=== PATIENT | male | born 1980 | race Caucasian/White ===

== ENCOUNTER 2016-09-17 16:41 | Emergency (ER) | payer OTHER ==
[~2016-09-17] VITALS: Ht 185.4 cm; Wt 98.9 kg
[2016-09-17] MEDS ORDERED: VASCEPA1 G1 PO (17:17)
[2016-09-17] MEDS ORDERED: ATORVASTATIN CA10 M1 PO (17:17)
[2016-09-17] MEDS ORDERED: FLUOXETINE HCL20 M2 PO (17:17)
[2016-09-17] MEDS ORDERED: MULTI-DAY VITA1 EACH PO (17:18)
--- NOTE | 2016-09-17 18:33 | RADIOLOGY REPORT ---
EXAMINATION: XR TIBIA AND FIBULA, LEFT CLINICAL INFORMATION: Laceration to the left anterior hoff. COMPARISON: None. TECHNIQUE: AP and lateral views of the left tibia and fibula were obtained. FINDINGS: Multiple views of the left tibia and fibula demonstrate a large soft tissue defect along the anterior aspect of the mid tibia. No underlying fracture or dislocation of the left tibia or fibula is identified. There are no retained radiopaque foreign bodies. The left knee and left ankle joints appear to be grossly intact. Incidental note is made of accessory ossicles adjacent to the talus as well as the cuboid bones. IMPRESSION: A large soft tissue defect along the anterior aspect of the mid left tibia, without underlying fracture of the left tibia or fibula. No radiopaque foreign bodies.
--- NOTE | 2016-09-17 18:59 | ED GENERAL ADULT ---
History of Present Illness General Chief Complaint: Laceration Procedure Stated Complaint: L HOFF LACERATION Source: patient Exam Limitations: no limitations Vital Signs & Intake/Output Vital Signs & Intake/Output Vital Signs Date Time Temp Pulse Resp B/P B/P Pulse O2 O2 Flow FiO2 Mean Ox Delivery Rate 09/18 2003 97.0 85 18 148/82 97 09/17 1802 99 Room Air 09/17 1644 98.8 100 16 166/96 96 Room Air Allergies Coded Allergies: No Known Allergies (09/17/16) Reconcile Medications Atorvastatin Calcium 10 MG TABLET 1 TAB PO DAILY CHOLESTEROL (Reported) Cephalexin (Keflex) 500 MG CAPSULE 1 CAP PO 4 TIMES/DAY contaminated laceration Fluoxetine HCl 20 MG CAPSULE 1 CAP PO DAILY ANXIETY (Reported) Icosapent Ethyl (Vascepa) 1 GRAM CAPSULE 2 CAP PO BID CHOLESTEROL (Reported) Multivitamin (Multi-Day Vitamins) 1 EACH TABLET 1 TAB PO DAILY SUPPLEMENT ( Reported) Triage Note: PT STATES HIS SHED DOOR FELL ON HIS LEFT LOWER LEG AND LEFT A HOLE IN IT. PT ARRIVES WITH DSG TO LEG BLEEDING CONTROLED AT TRIAGE. PT UNSURE OF TETANUS STATUS Triage Nurses Notes Reviewed? yes Onset: 1-2 hours ago Duration: hour(s): Timing: single episode today Injury Environment: home HPI: 36-year-old male with a past medical history of anxiety presenting with laceration to left anterior hoff status post hitting his leg on a shed door about one to 2 hours ago. Denies any numbness or paresthesias. Unsure of last tetanus. (JAMES CARRERA,DANITA) Past History Travel History Traveled to [place] past 21 day No Medical History Any Pertinent Medical History? see below for history Psychiatric: anxiety Tetanus Vaccine: 09/17/16 Surgical History Surgical History: non-contributory Psychosocial History What is your primary language Arabic Tobacco Use: Quit >30 days ago ETOH Use: occasional use Illicit Drug Use: denies illicit drug use Family History Hx Contributory? No (DANITA RAMIREZ PA-C) Review of Systems Review of Systems Constitutional: Reports: no symptoms. Respiratory: Reports: no symptoms. Cardiovascular: Reports: no symptoms. Skin: Reports: see HPI. (DANITA RAMIREZ PA-C) Physical Exam Physical Exam General Appearance: well developed/nourished, no apparent distress Respiratory: normal breath sounds, lungs clear Cardiovascular: regular rate/rhythm Extremities: injury present, tenderness, On exam of LLE there is an ~3cm lac to anterior hoff that extends through the subcutaneous tissue and muscle, +TTP, sensation intact, motor strength 5/5, distal pulses palpable. Core Measures ACS in differential dx? No CVA/TIA Diagnosis: No Severe Sepsis Present: No Septic Shock Present: No (DANITA RAMIREZ PA-C) Progress Differential Diagnoses I considered the following diagnoses in my evaluation of the patient: [ Laceration versus fracture] Plan of Care: Current Medications Sig/Candice Start time Last Medication Dose Stop Time Status Admin Cephalexin 500 MG ONCE ONE 09/18 1999 AC (Keflex 500MG Cap) 09/17 2000 X-ray shows no fracture to tibia or fibula. Wound repaired using a 2 layer technique. Muscle and subcutaneous tissue were realigned using 2 sutures of 5-0 chromic. Superficial skin was then realigned using 3-0 nylon. Wound was extensively irrigated and cleansed, however given mechanism with dirty object and extent of laceration well cover with Keflex. Tetanus updated. Patient given contact information for plastic surgeon to follow up with. Distracted to have sutures removed in 7 days. (DANITA RAMIREZ PA-C) Initial ED EKG: none (DANITA RAMIREZ PA-C) Departure Departure Disposition: HOME OR SELF CARE Condition: Stable Clinical Impression Primary Impression: Laceration of left lower extremity Referrals: FARAZ ANDRADE (PCP/Family) Departure Forms: Customer Survey General Discharge Information Prescriptions: Current Visit Scripts Cephalexin (Keflex) 1 CAP PO 4 TIMES/DAY 5 Days Comments Keep the wound clean and dry. Apply bacitracin daily. Take one tablet Keflex 4 times daily for 5 days. Follow-up with the plastic surgeon. Sutures should be removed in 7 days by either the plastic surgeon or by returning to the ED. Return to the ED for any new or worsening symptoms. (DANITA RAMIREZ PA-C) PA/CHARGE OUT CLERK Co-Sign Statement Statement: ED Attending supervision documentation- I saw and evaluated the patient. I have also reviewed all the pertinent lab results and diagnostic results. I agree with the findings and the plan of care as documented in the PA's/CHARGE OUT CLERK's documentation. x I have reviewed the ED Record and agree with the PA's/CHARGE OUT CLERK's documentation. [] Additions or exceptions (if any) to the PAs/CHARGE OUT CLERK's note and plan are summarized below: [] (ANNE HERNANDEZ,FLASH) Procedures Laceration/Wound Repair Laceration/Wound Repair: Wound Location: lower extremity Wound's Depth, Shape: flap, irregular, into muscle Wound Explored: clean, no foreign body removed, irrigated extensively Betadine Prep? Yes Anesthesia: 1% lidocaine Wound Repaired With: sutures Suture Size/Type: 3:0, nylon Number of Sutures: 7 Layer Closure? Yes Deep Layer Suture Size/Type: 3:0, chromic Number Deep Layer Sutures: 2 Sterile Dressing Applied: Yes Date of Last Tetanus: 09/17/16 (JAMES CARRERA,DANITA) Critical Care Note Critical Care Note Critical Care Time: non-applicable (JAMES CARRERA,DANITA)
[2016-09-17] MEDS ORDERED: KEFLEX500 M1 PO (19:55)
[2016-09-17 20:04] VITALS: BP 148/82
== END 2016-09-17 20:05 ==
LOC: ERH 16:41
DX: S81.812A Laceration without foreign body, left lower leg, initial encounter (principal); W22.8XXA Striking against or struck by other objects, initial encounter; Y92.9 Unspecified place or not applicable; Y93.9 Activity, unspecified
CPT/HCPCS: 73590-LT; 90471; 90714